=== PATIENT | male | born 1965 | race Two or more races ===

== ENCOUNTER → 2023-01-20 | Emergency (ER) | payer OTHER ==
[~2023-01-20] VITALS: Ht 177.8 cm; Wt 113.4 kg
[~2023-01-20] MED LIST: BACTRIM DS TAB1 EACH PO; KETO10TA2 PO
== END | disposition home or self-care (01) ==
LOC: ER 16:28
DX: R60.9 Edema, unspecified (principal); M79.671 Pain in right foot; L03.115 Cellulitis of right lower limb; Z88.0 Allergy status to penicillin

== ENCOUNTER 2023-01-29 21:51 | Emergency (ER) | payer OTHER ==
[~2023-01-29] VITALS: Ht 165.1 cm; Wt 86.2 kg
== END 2023-01-30 08:54 | disposition home or self-care (01) ==
LOC: ER 21:51
DX: M72.2 Plantar fascial fibromatosis (principal); Z88.0 Allergy status to penicillin